=== PATIENT | male | born 1990 | race Caucasian/White ===

== ENCOUNTER 2021-10-15 12:05 | Inpatient (IN) | payer OTHER ==
[2021-10-15] MEDS ORDERED: Lorazepam 2 MG/ML VIAL ONE ×2 (12:42→14:13)
[2021-10-15] MEDS ORDERED: Ondansetron PF 4 MG/2 ML Vial ONE (12:42)
[2021-10-15 13:06] LABS: #Monocytes 0.6 10x3/uL (0.0-1.1); #Neutrophils 7.1 10x3/uL (1.5-8.4); %Basophils 0.2 % (0.0-2.0); %Lymphocytes 12.5 % (18.0-47.0); %Monocytes 7.2 % (0.0-10.0); %Neutrophils 79.9 % (40.0-75.0); Hemoglobin 16.3 g/dL (13.5-17.5); Mean Corpuscular HGB CONC 35.6 g/dL (32.0-36.0); Mean Corpuscular Hemoglobin 28.5 pg (27.0-33.0); Mean Corpuscular Volume 80.1 fl (81.2-95.1); Mean Platelet Volume 9.2 fl (7.4-10.4); Platelet Count 305 10x3/uL (150-450); RBC Distribution Width 13.5 % (11.5-14.5); Red Blood Cell (RBC) Count 5.72 10x6/uL (4.32-5.72); White Blood Cell (WBC) Count 8.8 10x3/uL (3.5-10.5)
[2021-10-15] MEDS ORDERED: Thiamine HCl 200 MG/2 ML VIAL ONE (13:31)
[2021-10-15 13:47] LABS: ALT (SGPT) 62 U/L (8-55); AST (SGOT) 66 U/L (5-34); Albumin 4.7 g/dL (3.5-5.0); Alcohol Less than 10 mg/dL (Less than 10); Alkaline Phosphatase 99 U/L (40-110); Anion Gap 19 mmol/L (10-20); BUN (Urea Nitrogen) 19 mg/dL (8.9-20.6); Bilirubin, Total 0.8 mg/dL (0.2-1.2); Calc. Creatinine Clearance 0 mL/min (70-130); Calcium 10.8 mg/dL (7.8-10.44); Carbon Dioxide 25 mmol/L (22-29); Chloride 93 mmol/L (98-107); Estimated GFR 109; Globulin 3.7 g/dL (2.4-3.5); Glucose 166 mg/dL (70-105); Potassium 3.7 mmol/L (3.5-5.1); Protein, Total 8.4 g/dL (6.0-8.3); Sodium 133 mmol/L (136-145)
[2021-10-15] MEDS ORDERED: Multivitamins, Adult 10 ML, Folic Acid 1 MG, Thiamine HCl 100 MG in Dextrose 5 %-0.45 %... IV SCH (15:15)
[2021-10-15] MEDS ORDERED: Lorazepam 2 MG/ML VIAL IM PRN (15:18)
[2021-10-15] MEDS ORDERED: Acetaminophen 325 MG TAB PO PRN (15:21)
[2021-10-15] MEDS ORDERED: Senokot S 8.6-50 MG TAB PO PRN (15:22)
[2021-10-15] MEDS ORDERED: Electrolyte Replacement Protocol 1 EACH FS SCH (15:30)
[2021-10-15 16:30] LABS: Hemoglobin 14.8 g/dL (13.5-17.5); Mean Corpuscular HGB CONC 35.2 g/dL (32.0-36.0); Mean Corpuscular Hemoglobin 28.3 pg (27.0-33.0); Mean Corpuscular Volume 80.3 fl (81.2-95.1); Mean Platelet Volume 9.1 fl (7.4-10.4); Platelet Count 264 10x3/uL (150-450); RBC Distribution Width 13.4 % (11.5-14.5); Red Blood Cell (RBC) Count 5.23 10x6/uL (4.32-5.72); White Blood Cell (WBC) Count 7.5 10x3/uL (3.5-10.5)
[2021-10-15 16:31] LABS: MDiff Complete? YES
[2021-10-15] MEDS: Nicotine 14 MG PATCH TD SCH (16:50)
[2021-10-15] MEDS: Sodium Chloride 0.9% 1,000 ML IV SCH (16:51)
[2021-10-15] MEDS: Lorazepam 1 MG TAB PO PRN ×2 (16:51→22:34)
[2021-10-15 16:57] LABS: Band 3 % (5-11); Lymphocytes 11 % (21-51); Monocytes 5 % (0-10); Neutrophil 81 % (42-75)
[2021-10-15 16:58] LABS: Microcytosis SLIGHT = 6-15 cells (100X) (0-5/hpf); Platelet Morphology Comment Appears Adequate
[2021-10-15 17:12] LABS: ALT (SGPT) 54 U/L (8-55); AST (SGOT) 54 U/L (5-34); Albumin 4.1 g/dL (3.5-5.0); Alkaline Phosphatase 86 U/L (40-110); Anion Gap 15 mmol/L (10-20); BUN (Urea Nitrogen) 16 mg/dL (8.9-20.6); Bilirubin, Total 0.8 mg/dL (0.2-1.2); Calc. Creatinine Clearance 0 mL/min (70-130); Calcium 9.6 mg/dL (7.8-10.44); Carbon Dioxide 24 mmol/L (22-29); Estimated GFR 119; Globulin 3.2 g/dL (2.4-3.5); Glucose 117 mg/dL (70-105); Magnesium 1.9 mg/dL (1.6-2.6); Phosphorus 3.3 mg/dL (2.3-4.7); Potassium 3.7 mmol/L (3.5-5.1); Protein, Total 7.3 g/dL (6.0-8.3)
[2021-10-15 17:19] LABS: Chloride 98 mmol/L (98-107); Sodium 133 mmol/L (136-145)
[2021-10-15 17:20] VITALS: BMI 27.6
[2021-10-15] MEDS ORDERED: Magnesium 2 GM/50 ML(in water) 2 GM in Premix Bag 1 BAG IVPB SCH (17:30)
[2021-10-15] MEDS: Pantoprazole 40 MG VIAL IVP SCH (20:36)
[2021-10-15] MEDS: chlordiazePOXIDE HCl 25 MG CAP PO SCH (20:36)
[2021-10-16] MEDS: Ondansetron ODT 4 MG TAB PO PRN ×4 (00:13→21:09)
[2021-10-16] MEDS: Sodium Chloride 0.9% 1,000 ML IV SCH ×2 (05:24→15:29)
[2021-10-16 05:57] LABS: Anion Gap 12 mmol/L (10-20); BUN (Urea Nitrogen) 10 mg/dL (8.9-20.6); Calc. Creatinine Clearance 152 mL/min (70-130); Calcium 8.9 mg/dL (7.8-10.44); Carbon Dioxide 27 mmol/L (22-29); Chloride 103 mmol/L (98-107); Estimated GFR 115; Glucose 103 mg/dL (70-105); Magnesium 2.2 mg/dL (1.6-2.6); Potassium 4.1 mmol/L (3.5-5.1); Sodium 138 mmol/L (136-145)
[2021-10-16] MEDS: Pantoprazole 40 MG VIAL IVP SCH ×2 (09:58→21:09)
[2021-10-16] MEDS: Folic Acid 1 MG TAB PO SCH (09:59)
[2021-10-16] MEDS: Lorazepam 1 MG TAB PO PRN ×3 (09:59→21:09)
[2021-10-16] MEDS: Multivit, Therapeutic 1 TAB PO SCH (09:59)
[2021-10-16] MEDS: chlordiazePOXIDE HCl 25 MG CAP PO SCH ×3 (09:59→21:09)
[2021-10-16] MEDS: Nicotine 14 MG PATCH TD SCH (15:26)
[2021-10-17] MEDS ORDERED: diphenhydrAMINE 25 MG CAP PO SCH (00:30)
[2021-10-17] MEDS: Lorazepam 1 MG TAB PO PRN ×2 (02:17→10:47)
[2021-10-17 05:58] LABS: Anion Gap 14 mmol/L (10-20); BUN (Urea Nitrogen) 10 mg/dL (8.9-20.6); Calc. Creatinine Clearance 152 mL/min (70-130); Calcium 9.4 mg/dL (7.8-10.44); Carbon Dioxide 25 mmol/L (22-29); Chloride 102 mmol/L (98-107); Estimated GFR 115; Glucose 97 mg/dL (70-105); Potassium 3.7 mmol/L (3.5-5.1); Sodium 137 mmol/L (136-145)
[2021-10-17] MEDS: Folic Acid 1 MG TAB PO SCH (10:47)
[2021-10-17] MEDS: Multivit, Therapeutic 1 TAB PO SCH (10:47)
[2021-10-17] MEDS: Pantoprazole 40 MG VIAL IVP SCH (10:47)
[2021-10-17] MEDS: chlordiazePOXIDE HCl 25 MG CAP PO SCH (10:47)
[2021-10-17 12:20] VITALS: TEMP 97.9
[2021-10-17 12:23] VITALS: BP 143/97
[2021-10-18] MEDS ORDERED: Thiamine 100 MG TAB PO SCH (15:30)
== END 2021-10-17 13:09 | disposition home or self-care (01) | DRG 897 ==
LOC: CSHERS 12:05 → CSHTELE 15:52
PROVIDERS: ADMIT Internal Medicine; ATTEND Internal Medicine
PROC: HZ2ZZZZ Detoxification Services for Substance Abuse Treatment (ICD-10-PCS; principal; 2021-10-15)
DX: F10.139 Alcohol abuse with withdrawal, unspecified (principal); E87.1 Hypo-osmolality and hyponatremia; K21.9 Gastro-esophageal reflux disease without esophagitis; F43.10 Post-traumatic stress disorder, unspecified; F41.9 Anxiety disorder, unspecified; F32.A Depression, unspecified; Z60.2 Problems related to living alone; F15.10 Other stimulant abuse, uncomplicated; K76.0 Fatty (change of) liver, not elsewhere classified; R74.01 Elevation of levels of liver transaminase levels; K29.20 Alcoholic gastritis without bleeding; R73.9 Hyperglycemia, unspecified; Z20.822 Contact with and (suspected) exposure to COVID-19; Z98.890 Other specified postprocedural states; Z88.8 Allergy status to other drugs, medicaments and biological substances; Z91.14 Patient's other noncompliance with medication regimen; Z71.6 Tobacco abuse counseling; Z90.49 Acquired absence of other specified parts of digestive tract
CPT/HCPCS: 36415; 80048; 80053; 80307; 83735; 84100; 85025; 93005; 94760; 96361; 96365; 96375; 96376; C9113; J2060; J2405; J3411; J3475; J7042; J7050; Q0162; U0003; U0005

== ENCOUNTER 2021-10-29 06:37 | Emergency (ER) | payer OTHER ==
[2021-10-29] MEDS ORDERED: Lorazepam 2 MG/ML VIAL ONE ×3 (06:58→12:05)
[2021-10-29 07:14] LABS: #Basophils 0.1 10x3/uL (0.0-0.2); #Monocytes 0.5 10x3/uL (0.0-1.1); #Neutrophils 2.5 10x3/uL (1.5-8.4); %Basophils 1.4 % (0.0-2.0); %Eosinophils 0.7 % (0.0-6.0); %Lymphocytes 30.8 % (18.0-47.0); %Monocytes 10.3 % (0.0-10.0); %Neutrophils 56.6 % (40.0-75.0); Hemoglobin 15.4 g/dL (13.5-17.5); Mean Corpuscular Hemoglobin 28.3 pg (27.0-33.0); Mean Corpuscular Volume 80.9 fl (81.2-95.1); Mean Platelet Volume 8.9 fl (7.4-10.4); Platelet Count 248 10x3/uL (150-450); RBC Distribution Width 13.9 % (11.5-14.5); Red Blood Cell (RBC) Count 5.44 10x6/uL (4.32-5.72); White Blood Cell (WBC) Count 4.4 10x3/uL (3.5-10.5)
[2021-10-29 07:29] LABS: Alcohol 164 mg/dL (Less than 10); Salicylate Less than 8.0 mg/dL (15.0-30.0)
[2021-10-29 07:32] LABS: ALT (SGPT) 71 U/L (8-55); AST (SGOT) 79 U/L (5-34); Alkaline Phosphatase 78 U/L (40-110); Anion Gap 17 mmol/L (10-20); BUN (Urea Nitrogen) 10 mg/dL (8.9-20.6); Bilirubin, Total 0.6 mg/dL (0.2-1.2); Calc. Creatinine Clearance 0 mL/min (70-130); Calcium 8.8 mg/dL (7.8-10.44); Carbon Dioxide 24 mmol/L (22-29); Chloride 106 mmol/L (98-107); Estimated GFR 115; Globulin 2.7 g/dL (2.4-3.5); Glucose 132 mg/dL (70-105); Lipase 40 U/L (8-78); Potassium 3.9 mmol/L (3.5-5.1); Protein, Total 6.7 g/dL (6.0-8.3); Sodium 143 mmol/L (136-145)
[2021-10-29] MEDS ORDERED: Ondansetron PF 4 MG/2 ML Vial ONE (07:33)
[2021-10-29 07:37] LABS: Acetaminophen Less than 10.0 mcg/mL (10.0-30.0)
[2021-10-29 07:37] LABS: CK (CPK) 97 U/L (30-200); Magnesium 1.8 mg/dL (1.6-2.6)
[2021-10-29 09:46] LABS: Amphetamine Not Detected (NotDetected); Barbiturates Screen Not Detected (NotDetected); Benzodiazepine Screen Detected (NotDetected); Cocaine Metabolite Screen Not Detected (NotDetected); Methadone Not Detected (NotDetected); Methamphetamine Not Detected (NotDetected); Opiate Screen Not Detected (NotDetected); Oxycodone Screen Not Detected (NotDetected); Phencyclidine (PCP) Not Detected (NotDetected); THC/Cannabinoid Screen Detected (NotDetected); Tricyclic Screen Not Detected (NotDetected)
[2021-10-29 10:10] LABS: Lactic Acid 2.1 mmol/L (0.5-2.2)
[2021-10-29] MEDS ORDERED: Metoclopramide HCl 10 MG/2 ML VIAL ONE (12:05)
== END 2021-10-29 12:45 | disposition home or self-care (01) ==
LOC: CSHERS 06:37
DX: F10.239 Alcohol dependence with withdrawal, unspecified (principal); K21.9 Gastro-esophageal reflux disease without esophagitis
CPT/HCPCS: 80053; 80306; 80307; 82550; 83605; 83690; 83735; 84484; 85025; 93005; 96361; 96374; 96375; 96376; J2060; J2405; J2765

== ENCOUNTER 2022-01-12 00:28 | Emergency (ER) | payer OTHER ==
[2022-01-12] MEDS ORDERED: Ondansetron PF 4 MG/2 ML Vial ONE (00:36)
[2022-01-12 01:21] LABS: ALT (SGPT) 69 U/L (8-55); AST (SGOT) 115 U/L (5-34); Acetaminophen Less than 10.0 mcg/mL (10.0-30.0); Albumin 4.5 g/dL (3.5-5.0); Alcohol 80 mg/dL (Less than 10); Alkaline Phosphatase 97 U/L (40-110); Anion Gap 21 mmol/L (10-20); BUN (Urea Nitrogen) 4 mg/dL (8.9-20.6); Bilirubin, Total 1.1 mg/dL (0.2-1.2); Calc. Creatinine Clearance 0 mL/min (70-130); Calcium 9.6 mg/dL (7.8-10.44); Carbon Dioxide 23 mmol/L (22-29); Chloride 100 mmol/L (98-107); Estimated GFR 104; Globulin 3.2 g/dL (2.4-3.5); Glucose 138 mg/dL (70-105); Potassium 3.2 mmol/L (3.5-5.1); Protein, Total 7.7 g/dL (6.0-8.3); Salicylate Less than 8.0 mg/dL (15.0-30.0); Sodium 141 mmol/L (136-145)
[2022-01-12 01:27] LABS: #Eosinphils 0.1 10x3/uL (0.0-0.5); #Monocytes 0.4 10x3/uL (0.0-1.1); #Neutrophils 2.3 10x3/uL (1.5-8.4); %Basophils 0.7 % (0.0-2.0); %Lymphocytes 37.2 % (18.0-47.0); %Monocytes 9.3 % (0.0-10.0); %Neutrophils 50.8 % (40.0-75.0); Hemoglobin 16.7 g/dL (13.5-17.5); Mean Corpuscular HGB CONC 35.2 g/dL (32.0-36.0); Mean Corpuscular Hemoglobin 29.1 pg (27.0-33.0); Mean Corpuscular Volume 82.7 fl (81.2-95.1); Mean Platelet Volume 9.6 fl (7.4-10.4); Platelet Count 243 10x3/uL (150-450); RBC Distribution Width 12.7 % (11.5-14.5); Red Blood Cell (RBC) Count 5.73 10x6/uL (4.32-5.72); White Blood Cell (WBC) Count 4.6 10x3/uL (3.5-10.5)
[2022-01-12] MEDS ORDERED: Multivitamins, Adult 10 ML, Thiamine HCl 100 MG, Folic Acid 1 MG in Dextrose 5 %-0.45 %... IV SCH (02:00)
[2022-01-12] MEDS ORDERED: chlordiazePOXIDE HCl 25 MG CAP ONE ×2 (02:07→05:00)
[2022-01-12] MEDS ORDERED: Ondansetron ODT 4 MG TAB ONE (02:07)
[2022-01-12] MEDS ORDERED: Nicotine 14 MG PATCH ONE (02:18)
== END 2022-01-12 05:27 | disposition left against medical advice (07) ==
LOC: CSHERS 00:28
DX: F10.10 Alcohol abuse, uncomplicated (principal); Z53.29 Procedure and treatment not carried out because of patient's decision for other reasons
CPT/HCPCS: 80053; 80307; 85025; 93005; 96361; 96365; 96366; 96375; J2405; J3411; J7042; Q0162